=== PATIENT | male | born 1985 | race Two or more races ===

== ENCOUNTER 2023-12-15 23:44 | Emergency (ER) | payer OTHER ==
[~2023-12-15] VITALS: Ht 175.3 cm; Wt 70.3 kg
[2023-12-16] MEDS ORDERED: IBUPROFEN 400 MG TABLET ONE (00:42)
[2023-12-16] MEDS: IBUPROFEN 400 MG TABLET PO ONE (00:48)
[2023-12-16 02:26] VITALS: BP 131/75; TEMP 98; O2SAT 98
== END 2023-12-16 02:26 | disposition home or self-care (01) ==
LOC: ER 23:50
DX: S73.101A Unspecified sprain of right hip, initial encounter (principal); W01.198A Fall on same level from slipping, tripping and stumbling with subsequent striking against other object, initial encounter; Y93.89 Activity, other specified; Y92.481 Parking lot as the place of occurrence of the external cause; Y99.8 Other external cause status
CPT/HCPCS: 73502